=== PATIENT | female | born 1975 | race Caucasian/White ===

== ENCOUNTER 2024-05-04 22:23 | Emergency (ER) | payer BC, SELFPAY ==
[2024-05-04 22:24] VITALS: BMI 35.4
[2024-05-04 22:25] VITALS: BP 170/115
[2024-05-04 22:57] VITALS: BP 140/96
[2024-05-04 23:00] LABS: % Basophils 0.5 % (0-2); % Eosinophils 1.1 % (0-6); % Immature Granulocytes 0.2 % (0-0.5); % Lymphocytes 15.2 % (20.5-51.1); % Monocytes 6.5 % (1.7-9.3); % Neutrophils 76.5 % (42.2-75.2); Absolute Basophils 0.1 10^3/uL (0-0.2); Absolute Eosinophils 0.1 10^3/uL (0-0.7); Absolute Lymphocytes 1.5 10^3/uL (1.2-3.4); Absolute Monocytes 0.6 10^3/uL (0.1-0.6); Absolute Neutrophils 7.3 10^3/uL (1.4-6.5); Hemoglobin 14.5 g/dL (12.0-16.0); Mean Corp Hgb Conc. 34.5 g/dL (33.0-37.0); Mean Corpuscular Hgb 29.1 pg (27.0-31.0); Mean Corpuscular Volume 84.2 fL (81.0-99.0); Mean Platelet Volume 9.8 fL (7.4-10.4); Nucleated Red Blood Cells % 0 %; Platelet Count 333 10^3/uL (130-400); Red Blood Cell Count 4.99 10^6/uL (4.20-5.40); Red Cell Dist. Width 13.3 % (11.5-14.5); White Blood Cell Count 9.6 10^3/uL (4.8-10.8)
[2024-05-04 23:05] LABS: Urine Albumin Trace (Neg - Trace); Urine Bilirubin Negative (Negative); Urine Character Clear (Clear); Urine Color Yellow; Urine Glucose Negative (Negative); Urine Ketone Trace (Negative); Urine Leukocyte Trace (Negative); Urine Nitrite Negative (Negative); Urine Occult Blood 4+ (Negative); Urine Specific Gravity 1.015 (<1.030); Urine Urobilinogen 1+ (Neg - 1+); Urine pH 6.5 (5.0-9.0)
[2024-05-04 23:12] LABS: HCG, Serum Qualitative Screen Negative
[2024-05-04 23:13] LABS: Urine Bacteria Few (Negative); Urine Red Blood Cell 80-90 /HPF (0-2); Urine White Cell 0-2 /HPF (0-5)
[2024-05-04 23:16] LABS: ALT (SGPT) 21 U/L (0-35); AST (SGOT) 39 U/L (14-36); Albumin 4.5 g/dl (3.5-5.0); Alkaline Phosphatase 74 U/L (38-126); Blood Urea Nitrogen 19 mg/dl (7-17); Calcium 9.7 mg/dl (8.4-10.2); Carbon Dioxide 28 mmol/L (22-30); Chloride 101 mmol/L (98-107); Estimated Creatinine Clearance 101 ml/min; Glucose 105 mg/dl (70-99); Lipase 68 U/L (23-300); Potassium 3.8 mmol/L (3.5-5.1); Sodium 138 mmol/L (135-145); Total Bilirubin 0.8 mg/dl (0.2-1.3); Total Protein 7.5 g/dl (6.3-8.2); eGFR > 60.00
--- NOTE | 2024-05-05 00:49 | ED.GENMED ---
History of Present Illness
General
Chief Complaint: Abdominal Pain
Source: patient
Exam Limitations: none
Time Seen by Provider: 05/04/24 22:30
Nursing documentation reviewed up to this point in time: agreed with
Travel History
Have you had any contact with someone who has COVID-19?: No
Do you have any symptoms of coronavirus? Fever > 100 degrees, chills, cough, shortness of breath, sore throat, loss of taste or smell, muscle aches, or headache?: No
History of Present Illness
History of Present Illness:
This is a 49-year-old woman with no significant past medical history, takes no medicines on a daily basis. She complains of somewhat abrupt onset of moderate to severe left upper quadrant abdominal pain radiating to her left flank that began
approximately 1 hour prior to arrival. Left upper quadrant abdominal pain accompanied with nausea and vomiting. No history of similar episodes of pain. She did not take anything for pain and currently pain is markedly improved but not completely
resolved. She denies coughing or shortness of breath. Left upper quadrant pain/left flank pain is not worsened with deep breath. She denies fever nor chills. No diarrhea nor constipation, no dysuria and urgency and or hematuria.
She denies risk of , last menstrual period approximately 4 weeks ago, normal and on time.
Past History
Past History
ED Past Medical History: None
ED Past Surgical History: Cholecystectomy and Gynecological (Endometrial ablation)
Social History
Tobacco: Non-smoker
Alcohol: None
Drug: None
Personal:
Living: with family
Family History
Family History: Other (Noncontributory)
Phy Exam
Physical Exam
Physical Exam:
GENERAL: 49-year-old woman appears her stated age, bright and alert, pleasant, appears in no acute distress.
EYE: anicteric
NECK: Supple, nontender, no meningismus, no significant adenopathy.
ENT: oral mucosa is moist. No rhinorrhea.
CARDIAC: Regular rate and rhythm. no murmur.
LUNGS: Clear breath sounds bilaterally, no acute respiratory distress, no wheezes/rales/rhonchi
ABDOMEN: Soft, nondistended, mild tenderness with deep palpation left upper lateral quadrant, mild left CVA tenderness with percussion, no r/g, no palpable masses, normoactive BS.
NEUROLOGICAL: Alert and oriented x3, no focal neuro deficits. Gait is younger and steady.
SKIN: Warm and dry, normal color, skin intact. No rash.
MUSCULOSKELETAL: No C/C/E. peripheral pulses are full and equal b/l. No palpable tenderness.
PSYCH: Normal and appropriate interaction.
Course
Orders/Labs/Results
Orders:
Orders
05/04/24 22:51
IV Insert/Care/Rem.- Treatment PRN
Test Result ONCE
05/04/24 22:53
Complete Blood Count/With Diff Urgent
Comprehensive Metabolic Panel Urgent
HCG, Serum Qualitative Screen Urgent
Lipase Urgent
Urinalysis Reflex To Culture Urgent
Date Specimen was Collected: 05/04/24
Time Specimen was Collected: 22:51
Urine Microscopic Reflex Cult Urgent
05/04/24 23:24
CT Abd/pel Without Iv Or Oral Urgent
Comment:
Reason For Exam: acute LUQ to L flank pain w N/V
Abnormal Lab Results
05/04/24
22:53
Absolute Neuts (auto) 7.3 H 10^3/uL
(1.4-6.5)
Neutrophils % 76.5 H %
(42.2-75.2)
Lymphocytes % 15.2 L %
(20.5-51.1)
BUN 19 H mg/dl
(7-17)
Glucose 105 H mg/dl
(70-99)
AST 39 H U/L
(14-36)
Urine Ketones Trace A
(Negative)
Ur Occult Blood Reflex 4+ A
(Negative)
Leukocyte Esterase Rfl Trace A
(Negative)
Urine RBC 80-90 A /HPF
(0-2)
Urine Bacteria (Reflex) Few A
(Negative)
05/04/24 22:53
05/04/24 22:53
Vital Signs
Initial and Last Documented VS:
Initial Vital Signs
Temp Pulse Resp BP Pulse Ox
98.1 F 80 22 170/115 100
05/04/24 22:25 05/04/24 22:25 05/04/24 22:25 05/04/24 22:25 05/04/24 22:25
Last Documented Vital Signs
Temp Pulse Resp BP Pulse Ox
98.1 F 65 18 140/96 98
05/04/24 22:25 05/04/24 22:57 05/04/24 22:57 05/04/24 22:57 05/04/24 22:57
MDM/Problems Addressed
Differential Diagnosis Includes:
Concern for acute left-sided renal colic/ureteric stone, other consideration is small bowel obstruction, less likely acute gastritis, colitis, pyelonephritis, musculoskeletal pain.
Currently appears comfortable, has been offered pain medication which she declines.
Will check labs and urinalysis and will plan for CT abdomen and pelvis.
Chronic conditions affecting care: Previous abdomnial surgery (Cholecystectomy)
*Radiology
Radiology exam reviewed: radiology read reviewed (CAT scan shows a 4 x 5 x 6 mm obstructing left UPJ stone with associated mild to moderate hydronephrosis)
*Pulse Oximetry
Patient hypoxic: no
*Critical Care Note
Total Time (30-74mins, 75-104mins- exclusive of procedures): Not Applicable
Update Note
Update Note:
05/05/2024 0145 AM
Patient continues to appear well. Admits to very mild ache left upper quadrant/left lateral flank but continues to decline pain medication.
CAT scan shows a 4 x 5 x 6 mm obstructing left UPJ stone with mild to moderate hydronephrosis.
Labs are reassuring with normal white blood cell count, normal creatinine.
Urinalysis shows microscopic hematuria but no evidence of UTI.
As patient is comfortable, reassuring labs, will discharge to home with a prescription for oral Toradol for as needed pain and Zofran for as needed nausea. I have offered narcotic pain medication which she declines stating she is never taken a
narcotic before and fears for potential worsening of nausea.
This is certainly reasonable and she may do well with just oral Toradol for pain.
Discussed importance of staying well-hydrated on a daily basis.
Will refer to urology for follow-up.
Return precautions discussed including intractable pain, continued pain with onset of fever, intractable nausea and vomiting.
ED Attending Note
-
Portions of this chart may have been created with voice recognition software.� Occasional wrong word or��sound alike� substitutions may have occurred due to the inherent limitations of voice recognition software.
Discharge Plan
Departure
Patient Disposition: Home (Routine Discharge)
Date of Disposition: 05/05/24
Time of Disposition: 01:43
Patient with high blood pressure during this ER visit?: Yes
Condition: Good
Discharge Problem:
Calculus of proximal left ureter
Instructions: Kidney Stones (DC), BLOOD PRESSURE
Prescriptions:
New
ketorolac 10 mg tablet
10 mg PO QID PRN (Reason: pain) Qty: 20 0RF
ondansetron 4 mg tablet,disintegrating
4 mg PO QID PRN (Reason: nausea and vomiting) Qty: 20 0RF
No Action
amoxicillin 500 MG capsule
500 mg PO BID
prednisone 20 MG tablet
60 mg PO DAILY Qty: 15 0RF
valacyclovir [Valtrex] 1,000 MG tablet
1,000 mg PO TID Qty: 29 0RF
Referrals:
Josafat Purvis MD [Active] - Call in 1-3 days for appt
NONE,* [Family Provider] -
Interventions
Interventions:
*Risk Screen - Suicide Last Done: 05/04/24 22:25
*Neglect/Abuse Screening Last Done: 05/04/24 22:25
LR-[id number] Assessment Last Done: 05/04/24 23:45
Discharge Date and Time
Print Language: [id number]
[2024-05-05 02:02] VITALS: BP 136/89
== END 2024-05-05 02:03 | disposition home or self-care (01) ==
LOC: EMR 22:23
PROVIDERS: EMERGENCY PHYSICIAN Emergency Medicine
DX: N13.2 Hydronephrosis with renal and ureteral calculous obstruction (principal); R31.29 Other microscopic hematuria; R03.0 Elevated blood-pressure reading, without diagnosis of hypertension; Z90.49 Acquired absence of other specified parts of digestive tract
CPT/HCPCS: 99284; 74176; 80053; 81003; 81015; 83690; 84703; 85025